=== PATIENT | male | born 2000 | race Caucasian/White ===

== ENCOUNTER 2020-06-23 12:52 | Emergency (ER) | payer OTHER ==
[~2020-06-23] VITALS: Ht 161.3 cm; Wt 146.1 kg
[2020-06-23 13:08] VITALS: BP 127/56
[2020-06-23 15:15] VITALS: BP 117/67
== END 2020-06-23 15:14 | disposition home or self-care (01) ==
LOC: MED 12:52
DX: R42 Dizziness and giddiness (principal); F12.10 Cannabis abuse, uncomplicated; R07.9 Chest pain, unspecified
CPT/HCPCS: 99283